=== PATIENT | female | born 1945 | race African-American/Black ===

== ENCOUNTER 2017-09-05 18:01 | Inpatient (IN) | payer MEDICARE ==
[~2017-09-05] VITALS: Ht 165.1 cm; Wt 76.7 kg
[2017-09-05 19:37] VITALS: BP 150/61
[2017-09-06 00:13] VITALS: BP 138/63
[2017-09-06] MEDS ORDERED: ATORVASTATIN CA40 MG ORAL (02:37)
[2017-09-06] MEDS ORDERED: NORVASC5 MG ORAL (02:37)
[2017-09-06] MEDS ORDERED: ASCORBIC ACID500 MG ORAL (02:37)
[2017-09-06] MEDS ORDERED: ASPIRIN EC325 MG ORAL (02:37)
[2017-09-06] MEDS ORDERED: DULCOLAX10 MG RC (02:48)
[2017-09-06] MEDS ORDERED: BENAZEPRIL HCL40 MG ORAL (02:48)
[2017-09-06] MEDS ORDERED: LEXAPRO20 MG ORAL (02:48)
[2017-09-06] MEDS ORDERED: LEVEMIR FL100 UNIT/1 SUBQ (02:48)
[2017-09-06] MEDS ORDERED: FLEET ENEMA133 M1 RC (02:48)
[2017-09-06] MEDS ORDERED: NORCO 5-325 TA1 EACH ORAL (02:48)
[2017-09-06] MEDS ORDERED: PLAVIX75 MG ORAL (02:48)
[2017-09-06] MEDS ORDERED: FOLIC ACID1 MG ORAL (02:48)
[2017-09-06] MEDS ORDERED: MOM30 ML ORAL (02:48)
[2017-09-06] MEDS ORDERED: MULTIVITAMINS1 EAC8 ORAL (02:48)
[2017-09-06] MEDS ORDERED: DEPAKOTE500 MG PO (02:48)
[2017-09-06] MEDS ORDERED: FERROUSUL325 M1 PO (02:48)
[2017-09-06] MEDS ORDERED: COLACE100 MG ORAL (02:48)
[2017-09-06] MEDS ORDERED: Milk of Magnesia 30ml Ud ORAL SCH (03:00)
[2017-09-06] MEDS ORDERED: Fleet's Enema 133ml RECTAL SCH (03:00)
[2017-09-06] MEDS ORDERED: Norco 5mg/325mg tab ORAL PRN (03:00)
[2017-09-06 04:00] VITALS: BP 138/68
[2017-09-06] MEDS ORDERED: Vancomycin 1250mg/D5W 250ml 250 ML IVPB SCH (06:15)
[2017-09-06] MEDS: NovoLOG Insulin Flexpen SUBQ SCH ×4 (06:30→20:24)
[2017-09-06 07:43] LABS: BASOPHILS % (AUTO) 0.4 % (0.0-2.0); EOSINOPHILS % (AUTO) 2.6 % (0.0-3.0); HEMATOCRIT 38.2 % (37.0-47.0); HEMOGLOBIN 12.9 G/DL (12.0-16.0); MEAN CORPUSCULAR VOLUME 90 FL (80-99); MONOCYTES % (AUTO) 5.7 % (1.0-10.0); NEUTROPHILS % (AUTO) 68.2 % (45.0-75.0); PLATELET COUNT 231 K/UL (150-450); RED BLOOD COUNT 4.23 M/UL (4.20-5.40); RED CELL DISTRIBUTION WIDTH 12.3 % (11.6-14.8)
[2017-09-06 08:00] VITALS: BP 135/67
[2017-09-06 08:16] LABS: ALANINE AMINOTRANSFERASE 21 U/L (12-78); ALBUMIN 2.5 G/DL (3.4-5.0); ALBUMIN/GLOBULIN RATIO 0.5 (1.0-2.7); ALKALINE PHOSPHATASE 69 U/L (46-116); ANION GAP 7 mmol/L (5-15); ASPARTATE AMINO TRANSFERASE 26 U/L (15-37); BILIRUBIN,TOTAL 0.3 MG/DL (0.2-1.0); BLOOD UREA NITROGEN 25 mg/dL (7-18); CALCIUM 8.9 MG/DL (8.5-10.1); CARBON DIOXIDE 27 MMOL/L (21-32); CHLORIDE 107 MMOL/L (98-107); CREATININE 0.9 MG/DL (0.55-1.30); POTASSIUM 4.1 MMOL/L (3.5-5.1); SODIUM 141 MMOL/L (136-145)
[2017-09-06] MEDS: Depakote 500mg tab ORAL SCH ×2 (08:42→18:05)
[2017-09-06] MEDS: Docusate 100mg cap ORAL SCH ×2 (08:42→18:05)
[2017-09-06] MEDS: Aspirin EC 325mg tab ORAL SCH (08:42)
[2017-09-06] MEDS: Multivitamin w/Minerals tab ORAL SCH (08:42)
[2017-09-06] MEDS: Ascorbic Acid 500mg tab ORAL SCH (08:44)
--- NOTE | 2017-09-06 09:00 | History and Physical Report ---
DATE OF ADMISSION: 09/05/2017 HISTORY OF PRESENT ILLNESS: This is a 72-year-old female, who came to the hospital where she has abscess on the back and has been given p.o. antibiotics for 7 days. The patient is still having draining abscess and was having a little fever at [facility]. She has no fever. No chills. PAST MEDICAL HISTORY: Significant for hypertension, dementia, depression. ALLERGIES: NKA. MEDICATIONS: See the list. PHYSICAL EXAMINATION: GENERAL: This is an elderly female, who is currently awake, slightly confused, comfortable, in no distress. VITAL SIGNS: Blood pressure is 130/70, pulse 60s, respirations 18-24. Temperature, no fever. HEENT: AT/NC. EOMI. PERRLA. NECK: Supple. No JVD. CHEST: Bilateral crackles. CARDIOVASCULAR: Regular rhythm. No gallop. No murmur. ABDOMEN: Soft. EXTREMITIES: No CCE. BACK: She has a (neck) abscess. GENITOURINARY: She has draining bladder as well as . ASSESSMENT: 1. Back abscess. 2. Hypertension. 3. Depression. 4. Osteoarthritis. PLAN: We will admit on medical floor. Start IV antibiotics and wound care. Consider surgical consult. Check laboratories, CBC, CMP, and blood cultures. Chaz Galeas M.D. DR: Tara JOB#: [id number] CC:
[2017-09-06 12:00] VITALS: BP 140/68
--- NOTE | 2017-09-06 12:22 | Consultation ---
History of Present Illness General Date patient seen: Sep 06, 2017 Present Illness HPI 72-year-old female with hx of depression and anxiety, who came to the hospital where she has abscess on the back and has been given p.o. antibiotics for 7 days. the pt was slightly confused and anxious. the pt perseverated that she was worried about her medical condition. she was on psych med before coming to the hospital. no si/hi/psychotic sxs Allergies: Coded Allergies: No Known Allergies (Unverified , 09/05/17) Medication History Scheduled Amlodipine Besylate (Norvasc), 5 MG ORAL BID, (Reported) Ascorbic Acid* (Ascorbic Acid*), 500 MG ORAL DAILY, (Reported) Aspirin* (Aspirin Ec*), 325 MG ORAL DAILY, (Reported) Atorvastatin Calcium* (Atorvastatin Calcium*), 40 MG ORAL BEDTIME, (Reported) Benazepril Hcl* (Benazepril Hcl*), 40 MG ORAL DAILY, (Reported) Bisacodyl (Dulcolax), 10 MG RC NEEDED, (Reported) Clopidogrel Bisulfate* (Plavix*), 75 MG ORAL DAILY, (Reported) Divalproex Sodium (Depakote), 500 MG PO BID, (Reported) Docusate Sodium* (Colace*), 100 MG ORAL TWICE A DAY, (Reported) Escitalopram Oxalate* (Lexapro*), 20 MG ORAL DAILY, (Reported) Ferrous Sulfate (Ferrousul), 325 MG PO DAILY, (Reported) Folic Acid* (Folic Acid*), 1 MG ORAL DAILY, (Reported) Insulin Detemir (Levemir Flexpen), 0 SUBQ BEDTIME, (Reported) Magnesium Hydroxide (Milk of Magnesia), 30 ML ORAL NEEDED, (Reported) Multivitamin With Minerals (Multivitamins With Minerals*), 1 TAB ORAL DAILY, ( Reported) Na Phos,M-B/Na Phos,Di-Ba (Fleet Enema), 133 ML RC NEEDED, (Reported) Scheduled PRN Hydrocodone Bit/Acetaminophen 5-325* ([place] 5-325*), 1 TAB ORAL Q6H PRN for For Pain, (Reported) Patient History Limited by: medical condition History Provided By: Patient, Significant Other, PMD Healthcare decision maker Resuscitation status Full Code Advanced Directive on File Past Medical/Surgical History Past Medical/Surgical History: (1) MDD (major depressive disorder) (2) Abscess Review of Systems Psychiatric: Reports: prior hx, anxiety, depressed feelings, emotional problems Physical Exam General Appearance: alert, mild distress Neurologic: oriented x 3, depressed affect Last 24 Hour Vital Signs Date Time Temp Pulse Resp B/P (MAP) Pulse Ox O2 Delivery O2 Flow Rate FiO2 09/06/17 12:00 97.3 53 20 140/68 (92) 100 97.3 09/06/17 08:43 137/67 09/06/17 08:43 53 137/67 09/06/17 08:00 97.3 53 19 135/67 (89) 100 97.3 09/06/17 07:01 Room Air 09/06/17 04:00 97.4 52 19 138/68 (91) 95 97.4 09/06/17 00:13 96.3 59 20 138/63 (88) 100 96.3 09/05/17 22:21 Room Air 09/05/17 21:00 Room Air 09/05/17 19:37 96.8 50 20 150/61 (90) 99 96.8 Intake and Output 09/05/17 09/06/17 19:00 07:00 # Voids 1 Laboratory Tests Test 09/06/17 07:00 White Blood Count 8.0 K/UL (4.8-10.8) Red Blood Count 4.23 M/UL (4.20-5.40) Hemoglobin 12.9 G/DL (12.0-16.0) Hematocrit 38.2 % (37.0-47.0) Mean Corpuscular Volume 90 FL (80-99) Mean Corpuscular Hemoglobin 30.5 PG (27.0-31.0) Mean Corpuscular Hemoglobin Concent 33.8 G/DL (32.0-36.0) Red Cell Distribution Width 12.3 % (11.6-14.8) Platelet Count 231 K/UL (150-450) Mean Platelet Volume 7.1 FL (6.5-10.1) Neutrophils (%) (Auto) 68.2 % (45.0-75.0) Lymphocytes (%) (Auto) 23.0 % (20.0-45.0) Monocytes (%) (Auto) 5.7 % (1.0-10.0) Eosinophils (%) (Auto) 2.6 % (0.0-3.0) Basophils (%) (Auto) 0.4 % (0.0-2.0) Sodium Level 141 MMOL/L (136-145) Potassium Level 4.1 MMOL/L (3.5-5.1) Chloride Level 107 MMOL/L (98-107) Carbon Dioxide Level 27 MMOL/L (21-32) Anion Gap 7 mmol/L (5-15) Blood Urea Nitrogen 25 mg/dL (7-18) H Creatinine 0.9 MG/DL (0.55-1.30) Estimat Glomerular Filtration Rate mL/min (>60) Glucose Level 75 MG/DL (74-106) Calcium Level 8.9 MG/DL (8.5-10.1) Total Bilirubin 0.3 MG/DL (0.2-1.0) Aspartate Amino Transf (AST/SGOT) 26 U/L (15-37) Alanine Aminotransferase (ALT/SGPT) 21 U/L (12-78) Alkaline Phosphatase 69 U/L (46-116) Total Protein 7.3 G/DL (6.4-8.2) Albumin 2.5 G/DL (3.4-5.0) L Globulin 4.8 g/dL Albumin/Globulin Ratio 0.5 (1.0-2.7) L Microbiology Date/Time Source Procedure Growth Status 09/05/17 23:30 Rectum Received Height (Feet): 5 Height (Inches): 5.00 Weight (Pounds): 167 Medications Current Medications Medications (Trade) Dose Ordered Sig/Tyson Route PRN Reason Start Time Stop Time Status Last Admin Dose Admin Acetaminophen (Tylenol) 650 mg Q6H PRN ORAL Mild Pain/Temp > 100.5 09/06/17 03:00 10/06/17 02:59 Acetaminophen/ Hydrocodone Bitart ([place] 5/325) 1 tab Q6H PRN ORAL For Pain 09/06/17 03:00 09/13/17 02:59 Amlodipine Besylate (Norvasc) 5 mg BID ORAL 09/06/17 09:00 10/06/17 08:59 09/06/17 08:43 Ascorbic Acid (Vitamin C) 500 mg DAILY ORAL 09/06/17 09:00 10/06/17 08:59 09/06/17 08:44 Aspirin (Ecotrin) 325 mg DAILY ORAL 09/06/17 09:00 10/06/17 08:59 09/06/17 08:42 Atorvastatin Calcium (Lipitor) 40 mg BEDTIME ORAL 09/06/17 21:00 10/06/17 20:59 Benazepril HCl (Lotensin) 40 mg DAILY ORAL 09/06/17 09:00 10/06/17 08:59 09/06/17 08:43 Bisacodyl (Dulcolax) 10 mg NEEDED RECTAL 09/06/17 03:00 10/06/17 02:59 Clindamycin HCl/ Dextrose 50 ml @ 100 mls/hr Q6H IV 09/06/17 09:00 09/13/17 08:59 09/06/17 08:46 Clopidogrel Bisulfate (Plavix) 75 mg DAILY ORAL 09/06/17 09:00 10/06/17 08:59 09/06/17 08:42 Dextrose (Dextrose 50%) 25 ml STAT PRN IV Hypoglycemia 09/06/17 03:00 10/06/17 02:59 Dextrose (Dextrose 50%) 50 ml STAT PRN IV Hypoglycemia 09/06/17 03:00 10/06/17 02:59 Divalproex Sodium (Depakote) 500 mg BID ORAL 09/06/17 09:00 10/06/17 08:59 09/06/17 08:42 Docusate Sodium (Colace) 100 mg TWICE A DAY ORAL 09/06/17 09:00 10/06/17 08:59 09/06/17 08:42 Escitalopram Oxalate (Lexapro) 20 mg DAILY ORAL 09/06/17 09:00 10/06/17 08:59 09/06/17 08:42 Ferrous Sulfate (Feosol) 325 mg DAILY ORAL 09/06/17 09:00 10/06/17 08:59 09/06/17 08:43 Folic Acid (Folate) 1 mg DAILY ORAL 09/06/17 09:00 10/06/17 08:59 09/06/17 08:43 Insulin Aspart (NovoLOG) BEFORE MEALS AND HS SUBQ 09/06/17 06:30 10/06/17 06:29 Insulin Detemir (Levemir) 10 units BEDTIME SUBQ 09/06/17 21:00 10/06/17 20:59 Magnesium Hydroxide (Mom) 30 ml NEEDED ORAL 09/06/17 03:00 10/06/17 02:59 Multivitamins Therapeutic (Therapeutic Multivitamin) 1 ea DAILY ORAL 09/06/17 09:00 10/06/17 08:59 09/06/17 08:42 Sodium Phosphate (Fleet's Sodium Phosl Enema) 133 ml NEEDED RECTAL 09/06/17 03:00 10/06/17 02:59 Vancomycin HCl (Vanco rx to dose) 1 ea DAILY PRN MISC Per rx protocol 09/06/17 03:00 10/06/17 02:59 Vancomycin HCl/ Dextrose 250 ml @ 166.667 mls/hr Q24H IVPB 09/07/17 08:00 09/12/17 07:59 Assessment/Plan Assessment/Plan MDD Anxiety -restart lexapro -ativan prn -d/w Julia Cain MD Sep 06, 2017 12:22
[2017-09-06 16:00] VITALS: BP 151/62
[2017-09-06 19:41] VITALS: BP 152/67
--- NOTE | 2017-09-06 19:45 | Progress Note ---
DATE: 09/06/2017 SUBJECTIVE: The patient is a 72-year-old female, who is currently awake, comfortable. No distress. Complaining of some confusion as well as back pain. She has a drain. She has no fever. No chills. is supposed to see her today. OBJECTIVE: VITAL SIGNS: Blood pressure 130/70, pulse 60 and no fever. HEENT: NAD. CHEST: Bilateral clear. CARDIOVASCULAR: Regular rhythm. No gallop. No murmur. ABDOMEN: Soft. EXTREMITIES: CCE. NEUROLOGICAL: No focal deficit. ASSESSMENT AND PLAN: 1. abscess. 2. Abdominal pain. 3. Hypertension. 4. Diabetes. We will currently continue antibiotics. Continue wound care. Surgery consult. Chaz Galeas M.D. DR: JOSE MIGUEL JOB#: [id number] CC:
[2017-09-06] MEDS: Atorvastatin 80mg tab ORAL SCH (20:21)
[2017-09-06] MEDS: Levemir Flexpen SUBQ SCH (20:22)
[2017-09-07 00:27] VITALS: BP_SYST 119; BP_SYST 94; BP_DIAS 49; BP_DIAS 79
[2017-09-07 04:03] VITALS: BP 146/67
[2017-09-07] MEDS: NovoLOG Insulin Flexpen SUBQ SCH ×4 (06:02→20:30)
[2017-09-07 08:00] VITALS: BP 164/60
[2017-09-07] MEDS: Ascorbic Acid 500mg tab ORAL SCH (08:39)
[2017-09-07] MEDS: Depakote 500mg tab ORAL SCH ×2 (08:39→18:00)
[2017-09-07] MEDS: Multivitamin w/Minerals tab ORAL SCH (08:39)
[2017-09-07] MEDS: Aspirin EC 325mg tab ORAL SCH (08:39)
[2017-09-07] MEDS: Vancomycin 1250mg/D5W 250ml IVPB SCH (08:40)
[2017-09-07] MEDS: Docusate 100mg cap ORAL SCH ×2 (08:40→18:00)
--- NOTE | 2017-09-07 11:09 | Consultation ---
History of Present Illness General Date patient seen: Sep 07, 2017 Reason for Consultation: back abscess Present Illness HPI 72 year old female [facility] resident with multiple medical comorbidities was noted to have mid back abscess that was draining. was given trial of oral abx but continued to progress and failed outpatient medical management. was admitted for IV Abx and surgical eval. patient seen, chart reviewed, patient examined. states pain in back at area of abscess. unsure how long she has had it for. otherwise comfortable. Allergies: Coded Allergies: No Known Allergies (Unverified , 09/05/17) Medication History Scheduled Amlodipine Besylate (Norvasc), 5 MG ORAL BID, (Reported) Ascorbic Acid* (Ascorbic Acid*), 500 MG ORAL DAILY, (Reported) Aspirin* (Aspirin Ec*), 325 MG ORAL DAILY, (Reported) Atorvastatin Calcium* (Atorvastatin Calcium*), 40 MG ORAL BEDTIME, (Reported) Benazepril Hcl* (Benazepril Hcl*), 40 MG ORAL DAILY, (Reported) Bisacodyl (Dulcolax), 10 MG RC NEEDED, (Reported) Clopidogrel Bisulfate* (Plavix*), 75 MG ORAL DAILY, (Reported) Divalproex Sodium (Depakote), 500 MG PO BID, (Reported) Docusate Sodium* (Colace*), 100 MG ORAL TWICE A DAY, (Reported) Escitalopram Oxalate* (Lexapro*), 20 MG ORAL DAILY, (Reported) Ferrous Sulfate (Ferrousul), 325 MG PO DAILY, (Reported) Folic Acid* (Folic Acid*), 1 MG ORAL DAILY, (Reported) Insulin Detemir (Levemir Flexpen), 0 SUBQ BEDTIME, (Reported) Magnesium Hydroxide (Milk of Magnesia), 30 ML ORAL NEEDED, (Reported) Multivitamin With Minerals (Multivitamins With Minerals*), 1 TAB ORAL DAILY, ( Reported) Na Phos,M-B/Na Phos,Di-Ba (Fleet Enema), 133 ML RC NEEDED, (Reported) Scheduled PRN Hydrocodone Bit/Acetaminophen 5-325* ([place] 5-325*), 1 TAB ORAL Q6H PRN for For Pain, (Reported) Patient History Limited by: medical condition History Provided By: Patient, Medical Record, PMD Healthcare decision maker Resuscitation status Full Code Advanced Directive on File Past Medical/Surgical History Past Medical/Surgical History: (1) Abscess (2) MDD (major depressive disorder) Review of Systems All Other Systems: negative except mentioned in HPI Physical Exam General Appearance: no apparent distress Lines, tubes and drains: peripheral HEENT: mucous membranes moist, PERRL Neck: normal inspection Respiratory/Chest: normal breath sounds, no respiratory distress, no accessory muscle use Cardiovascular/Chest: normal rate, regular rhythm Abdomen: normal bowel sounds, non tender, soft, no organomegaly, no mass Extremities: normal inspection Skin Exam: warm/dry Neurologic: alert, oriented x 3 Last 24 Hour Vital Signs Date Time Temp Pulse Resp B/P (MAP) Pulse Ox O2 Delivery O2 Flow Rate FiO2 09/07/17 09:00 Room Air 09/07/17 08:39 164/60 09/07/17 08:39 52 164/60 09/07/17 08:00 97.7 52 18 164/60 (94) 99 97.7 09/07/17 04:03 96.8 55 19 146/67 (93) 99 96.8 09/07/17 00:27 97.3 64 20 94/49 (64) 99 97.3 09/06/17 21:12 Room Air 09/06/17 19:41 98.0 57 20 152/67 (95) 96 98.0 09/06/17 18:07 59 151/62 09/06/17 16:00 98.2 59 19 151/62 (91) 98 98.2 09/06/17 12:00 97.3 53 20 140/68 (92) 100 97.3 Intake and Output 09/06/17 09/07/17 19:00 07:00 Intake Total 1034 ml 100 ml Balance 1034 ml 100 ml Intake Oral 500 ml IV Total 534 ml 100 ml # Voids 2 2 # Bowel Movements 1 Height (Feet): 5 Height (Inches): 5.00 Weight (Pounds): 167 Medications Current Medications Medications (Trade) Dose Ordered Sig/Tyson Route PRN Reason Start Time Stop Time Status Last Admin Dose Admin Acetaminophen (Tylenol) 650 mg Q6H PRN ORAL Mild Pain/Temp > 100.5 09/06/17 03:00 10/06/17 02:59 Acetaminophen/ Hydrocodone Bitart ([place] 5/325) 1 tab Q6H PRN ORAL For Pain 09/06/17 03:00 09/13/17 02:59 Amlodipine Besylate (Norvasc) 5 mg BID ORAL 09/06/17 09:00 10/06/17 08:59 09/07/17 08:39 Ascorbic Acid (Vitamin C) 500 mg DAILY ORAL 09/06/17 09:00 10/06/17 08:59 09/07/17 08:39 Aspirin (Ecotrin) 325 mg DAILY ORAL 09/06/17 09:00 10/06/17 08:59 09/07/17 08:39 Atorvastatin Calcium (Lipitor) 40 mg BEDTIME ORAL 09/06/17 21:00 10/06/17 20:59 09/06/17 20:21 Benazepril HCl (Lotensin) 40 mg DAILY ORAL 09/06/17 09:00 10/06/17 08:59 09/07/17 08:39 Bisacodyl (Dulcolax) 10 mg NEEDED RECTAL 09/06/17 03:00 10/06/17 02:59 Clindamycin HCl/ Dextrose 50 ml @ 100 mls/hr Q6H IV 09/06/17 09:00 09/13/17 08:59 09/07/17 10:33 Clopidogrel Bisulfate (Plavix) 75 mg DAILY ORAL 09/06/17 09:00 10/06/17 08:59 09/07/17 08:39 Dextrose (Dextrose 50%) 25 ml STAT PRN IV Hypoglycemia 09/06/17 03:00 10/06/17 02:59 Dextrose (Dextrose 50%) 50 ml STAT PRN IV Hypoglycemia 09/06/17 03:00 10/06/17 02:59 Divalproex Sodium (Depakote) 500 mg BID ORAL 09/06/17 09:00 10/06/17 08:59 09/07/17 08:39 Docusate Sodium (Colace) 100 mg TWICE A DAY ORAL 09/06/17 09:00 10/06/17 08:59 09/07/17 08:40 Escitalopram Oxalate (Lexapro) 20 mg DAILY ORAL 09/06/17 09:00 10/06/17 08:59 09/07/17 08:39 Ferrous Sulfate (Feosol) 325 mg DAILY ORAL 09/06/17 09:00 8/29/18 08:59 09/07/17 08:39 Folic Acid (Folate) 1 mg DAILY ORAL 09/06/17 09:00 10/06/17 08:59 09/07/17 08:39 Insulin Aspart (NovoLOG) BEFORE MEALS AND HS SUBQ 09/06/17 06:30 10/06/17 06:29 09/06/17 20:24 Insulin Detemir (Levemir) 10 units BEDTIME SUBQ 09/06/17 21:00 10/06/17 20:59 09/06/17 20:22 Lorazepam (Ativan) 2 mg Q6H PRN ORAL anxiety 09/06/17 12:45 09/13/17 12:44 Magnesium Hydroxide (Mom) 30 ml NEEDED ORAL 09/06/17 03:00 10/06/17 02:59 Multivitamins Therapeutic (Therapeutic Multivitamin) 1 ea DAILY ORAL 09/06/17 09:00 10/06/17 08:59 09/07/17 08:39 Sodium Phosphate (Fleet's Sodium Phosl Enema) 133 ml NEEDED RECTAL 09/06/17 03:00 10/06/17 02:59 Vancomycin HCl (Vanco rx to dose) 1 ea DAILY PRN MISC Per rx protocol 09/06/17 03:00 10/06/17 02:59 Vancomycin HCl/ Dextrose 250 ml @ 166.667 mls/hr Q24H IVPB 09/07/17 08:00 09/12/17 07:59 09/07/17 08:40 Assessment/Plan Problem List: (1) Abscess or cellulitis of back SNOMED: 244682919 (2) Cutaneous abscess of back [any part, except buttock] Assessment & Plan: 72F mid upper back abscess 2cm x 3cm with spontaneous drainage. area of drainage few mm in size. was able to express contents at bedside and completely drain. given poor nutrition may take some time to heal. most of drainage was old blood and minimal purulent. will monitor while in hospital. given large opening and good spontaneous drainage no need for further incision at this time. cont Abx. dressing changes bid and prn thank you for this consultation ICD Codes: L02.212 - Cutaneous abscess of back [any part, except buttock] SNOMED: 01462649, [id number] Status: stable Danny Valencia Sep 07, 2017 11:09
[2017-09-07 12:00] VITALS: BP 142/66
--- NOTE | 2017-09-07 15:03 | General Progress Note ---
Assessment/Plan Status: stable Assessment/Plan MDD Anxiety -restart lexapro -ativan prn -d/w friend Subjective Date patient seen: Sep 07, 2017 Neurologic/Psychiatric: Reports: anxiety, depressed, emotional problems Allergies: Coded Allergies: No Known Allergies (Unverified , 09/05/17) Objective Last 24 Hour Vital Signs Date Time Temp Pulse Resp B/P (MAP) Pulse Ox O2 Delivery O2 Flow Rate FiO2 09/07/17 12:00 98.0 51 20 142/66 (91) 97 98.0 09/07/17 09:00 Room Air 09/07/17 08:39 164/60 09/07/17 08:39 52 164/60 09/07/17 08:00 97.7 52 18 164/60 (94) 99 97.7 09/07/17 04:03 96.8 55 19 146/67 (93) 99 96.8 09/07/17 00:27 97.3 64 20 94/49 (64) 99 97.3 09/06/17 21:12 Room Air 09/06/17 19:41 98.0 57 20 152/67 (95) 96 98.0 09/06/17 18:07 59 151/62 09/06/17 16:00 98.2 59 19 151/62 (91) 98 98.2 Intake and Output 09/06/17 09/07/17 19:00 07:00 Intake Total 1034 ml 100 ml Balance 1034 ml 100 ml Intake Oral 500 ml IV Total 534 ml 100 ml # Voids 2 2 # Bowel Movements 1 Height (Feet): 5 Height (Inches): 5.00 Weight (Pounds): 167 General Appearance: no apparent distress, alert Neurologic: depressed affect - the pt is agitated Julia Oshea MD Sep 07, 2017 15:03
[2017-09-07 16:00] VITALS: BP 137/64
[2017-09-07] MEDS: LORazepam 1mg tab ORAL PRN (16:06)
[2017-09-07 19:17] VITALS: BP 138/60
[2017-09-07] MEDS: Atorvastatin 80mg tab ORAL SCH (20:30)
[2017-09-07] MEDS: Levemir Flexpen SUBQ SCH (20:30)
[2017-09-08 00:10] VITALS: BP 144/62
--- NOTE | 2017-09-08 01:00 | Progress Note ---
DATE: 09/07/2017 OBJECTIVE: VITAL SIGNS: Blood pressure 138/60, pulse 49, respirations 16, and temperature 98.6. HEENT: NAD. CHEST: Bilaterally clear. CARDIOVASCULAR: Regular rhythm. No gallop. No murmur. ABDOMEN: Soft. EXTREMITIES: CCE. ASSESSMENT: 1. Back abscess. 2. Cellulitis. 3. Hypertension. 4. Depression. PLAN: Continue current treatment. Surgery is on case for local debridement. Continue wound care. The patient is going to continue antibiotics. She is on vancomycin and clindamycin. Continue wound care. Continue Plavix. Continue benazepril. Chaz Galeas M.D. DR: JENIFER JOB#: [id number] CC:
[2017-09-08 04:02] VITALS: BP 149/55
[2017-09-08] MEDS: NovoLOG Insulin Flexpen SUBQ SCH ×4 (06:03→20:55)
[2017-09-08 08:00] VITALS: BP 126/74
[2017-09-08] MEDS: Multivitamin w/Minerals tab ORAL SCH (08:57)
[2017-09-08] MEDS: Docusate 100mg cap ORAL SCH ×2 (08:58→17:44)
[2017-09-08] MEDS: Depakote 500mg tab ORAL SCH ×2 (08:58→17:44)
[2017-09-08] MEDS: Ascorbic Acid 500mg tab ORAL SCH (08:58)
[2017-09-08] MEDS: LORazepam 1mg tab ORAL PRN (08:58)
[2017-09-08] MEDS: Aspirin EC 325mg tab ORAL SCH (08:58)
[2017-09-08] MEDS: Vancomycin 1250mg/D5W 250ml IVPB SCH (08:59)
[2017-09-08 12:00] VITALS: BP 150/71
--- NOTE | 2017-09-08 14:25 | General Progress Note ---
Assessment/Plan Assessment/Plan MDD Anxiety encephalopathy -restart lexapro -ativan prn -risperdal 1mg qhs Subjective Date patient seen: Sep 08, 2017 Neurologic/Psychiatric: Reports: anxiety Allergies: Coded Allergies: No Known Allergies (Unverified , 09/05/17) Subjective the pt was more confused today and hallucinating Objective Last 24 Hour Vital Signs Date Time Temp Pulse Resp B/P (MAP) Pulse Ox O2 Delivery O2 Flow Rate FiO2 09/08/17 12:00 97.8 54 20 150/71 (97) 98 97.8 09/08/17 09:00 Room Air 09/08/17 08:58 126/74 09/08/17 08:58 74 126/74 09/08/17 08:00 97.4 74 20 126/74 (91) 98 97.4 09/08/17 04:02 97.2 58 18 149/55 (86) 98 97.2 09/08/17 00:10 96.6 49 16 144/62 (89) 100 96.6 09/07/17 20:12 Room Air 09/07/17 19:17 96.1 49 16 138/60 (86) 100 96.1 09/07/17 16:00 97.7 50 20 137/64 (88) 94 97.7 Intake and Output 09/07/17 09/08/17 19:00 07:00 Intake Total 743.334 ml 100 ml Balance 743.334 ml 100 ml Intake Oral 360 ml IV Total 383.334 ml 100 ml # Voids 3 5 # Bowel Movements 2 1 Laboratory Tests 09/08/17 06:50: Vancomycin Level Trough 11.2 Height (Feet): 5 Height (Inches): 5.00 Weight (Pounds): 169 General Appearance: no apparent distress, alert, confused, other - [facility]H Julia Oshea MD Sep 08, 2017 14:25
[2017-09-08 16:00] VITALS: BP 155/78
[2017-09-08 20:00] VITALS: BP 132/66
[2017-09-08] MEDS: Levemir Flexpen SUBQ SCH (20:56)
[2017-09-08] MEDS: Atorvastatin 80mg tab ORAL SCH (20:57)
[2017-09-08] MEDS: HydrALAZINE 25mg tab ORAL SCH (22:00)
--- NOTE | 2017-09-08 23:45 | Progress Note ---
DATE: 09/08/2017 SUBJECTIVE: This is an elderly female, currently in the bed, comfortable, in no distress. OBJECTIVE: VITAL SIGNS: Blood pressure is 130/70, pulse 74, and respirations 18. HEENT: NAD. CHEST: Bilaterally clear. CARDIOVASCULAR: Regular rhythm. ABDOMEN: Soft. EXTREMITIES: CCE. ASSESSMENT: 1. Back abscess. 2. Hypertension. 3. Congestive heart failure. PLAN: We will currently continue wound care. Continue antibiotic. Continue supportive treatment. Chaz Galeas M.D. DR: JENIFER JOB#: [id number] CC:
[2017-09-09] VITALS: BP 140/60
[2017-09-09 04:00] VITALS: BP 159/67
[2017-09-09] MEDS: NovoLOG Insulin Flexpen SUBQ SCH ×2 (06:30→12:10)
[2017-09-09] MEDS: HydrALAZINE 25mg tab ORAL SCH (07:05)
[2017-09-09 08:00] VITALS: BP 138/69
[2017-09-09] MEDS: Vancomycin 1250mg/D5W 250ml IVPB SCH (08:16)
[2017-09-09] MEDS: Depakote 500mg tab ORAL SCH (08:18)
[2017-09-09] MEDS: Aspirin EC 325mg tab ORAL SCH (08:18)
[2017-09-09] MEDS: Multivitamin w/Minerals tab ORAL SCH (08:18)
[2017-09-09] MEDS: Ascorbic Acid 500mg tab ORAL SCH (08:19)
[2017-09-09] MEDS: Docusate 100mg cap ORAL SCH (08:19)
--- NOTE | 2017-09-09 10:57 | General Surgery Progress Note ---
General Surgery-Progress Note Subjective Additional Comments no acute events. improved. comfortable. no n/v/f/c. wound improved. Objective Last 24 Hour Vital Signs Date Time Temp Pulse Resp B/P (MAP) Pulse Ox O2 Delivery O2 Flow Rate FiO2 09/09/17 09:00 Room Air 09/09/17 08:22 138/69 09/09/17 08:22 57 138/69 09/09/17 08:00 97.9 57 20 138/69 (92) 99 97.9 09/09/17 07:05 142/63 09/09/17 04:00 97.0 60 20 159/67 (97) 100 97.0 09/09/17 00:00 97.9 52 20 140/60 (86) 100 97.9 09/08/17 22:00 108/56 09/08/17 21:00 Room Air 09/08/17 20:00 97.0 56 20 132/66 (88) 99 97.0 09/08/17 17:44 66 131/60 09/08/17 16:00 98.1 64 20 155/78 (103) 98 98.1 09/08/17 12:00 97.8 54 20 150/71 (97) 98 97.8 I&O Intake and Output 09/08/17 09/09/17 19:00 07:00 Intake Total 650.000 ml 340 ml Output Total 600 ml 900 ml Balance 50.000 ml -560 ml Intake Oral 300 ml 240 ml IV Total 350.000 ml 100 ml Output Urine Total 600 ml 900 ml Wound: clean, dry Drains: none Cardiovascular: RSR Respiratory: clear Abdomen: soft, flat Extremities: no cyanosis Plan Problems: (1) Abscess or cellulitis of back (2) Cutaneous abscess of back [any part, except buttock] Assessment & Plan: 72F mid upper back abscess 2cm x 3cm with spontaneous drainage. area of drainage few mm in size. was able to express contents at bedside and completely drain. given poor nutrition may take some time to heal. most of drainage was old blood and minimal purulent. will monitor while in hospital. given large opening and good spontaneous drainage no need for further incision at this time. cont Abx. consider transition to oral for d/c . dressing changes prn thank you for this consultation Danny Valencia Sep 09, 2017 10:57
[2017-09-09] MEDS ORDERED: BACTRIM DOUBLE S1 E1 ORAL (11:00)
[2017-09-09 12:00] VITALS: BP 133/60
[2017-09-09] MEDS ORDERED: Tubing IV Secondary IV ONE (13:14)
[2017-09-09] MEDS ORDERED: NS 275ml ONE (13:14)
--- NOTE | 2017-09-09 22:09 | General Progress Note ---
Assessment/Plan Assessment/Plan MDD Anxiety encephalopathy -restart lexapro -ativan prn -risperdal 1mg qhs Subjective Date patient seen: Sep 09, 2017 Neurologic/Psychiatric: Reports: anxiety, depressed, emotional problems Allergies: Coded Allergies: No Known Allergies (Unverified , 09/05/17) Subjective the pt was more confused today and hallucinating Objective Last 24 Hour Vital Signs Date Time Temp Pulse Resp B/P (MAP) Pulse Ox O2 Delivery O2 Flow Rate FiO2 09/09/17 12:00 97.9 53 22 133/60 (84) 98 97.9 09/09/17 09:00 Room Air 09/09/17 08:22 138/69 09/09/17 08:22 57 138/69 09/09/17 08:00 97.9 20 138/69 (92) 99 97.9 09/09/17 07:05 142/63 09/09/17 04:00 97.0 60 20 159/67 (97) 100 97.0 09/09/17 00:00 97.9 52 20 140/60 (86) 100 97.9 Intake and Output 09/08/17 09/09/17 19:00 07:00 Intake Total 650.000 ml 340 ml Output Total 600 ml 900 ml Balance 50.000 ml -560 ml Intake Oral 300 ml 240 ml IV Total 350.000 ml 100 ml Output Urine Total 600 ml 900 ml Height (Feet): 5 Height (Inches): 5.00 Weight (Pounds): 169 Julia Oshea MD Sep 09, 2017 22:09
--- NOTE | 2017-09-10 00:30 | Progress Note ---
DATE: 09/09/2017 SUBJECTIVE: This is a 72-year-old female, who came to the hospital for back abscess. The patient has refused IV antibiotic, wound care, and Surgery evaluation. The patient has finished IV antibiotic course ____. The patient has no fever. Cultures are negative. Discharge diagnoses: 1. Abscess on the back. 2. Hypertension. 3. Dementia. 4. Depression. PLAN: Continue home medications. Follow up as outpatient. DISCHARGE DIAGNOSES: 1. Cellulitis. 2. Abscess. 3. Depression. Chaz Galeas M.D. DR: Tara JOB#: [id number] CC:
--- NOTE | 2017-09-10 10:01 | Discharge Summary ---
Discharge Summary Discharge Summary _ DATE OF ADMISSION: 09/05/2017 DATE OF DISCHARGE: 09/09/2017 CONSULTANTS: Dr. Danny Oshea BRIEF HOSPITAL COURSE: Patient is a 72-year-old -[place] female, who came to the hospital hospital due to abscess on the back. She had been on po antibiotics for 7 days and the wound was draining with abscess. She was with slight fever at the group home. Due to failed outpatient management, she was taken as a direct admit to [facility]. She was admitted to medical floor. She was started on IV antibiotic vancomycin. Surgery was consulted. Patient has 2 cm x 3 cm abscess on the back with spontaneous drainage. No need for incision. Surgeon was able to express contents at bedside and completely drained. Drainage was mostly old blood with minimal purulence. Dressings were applied. He was given wound care. He was seen psychiatrist. Patient with history of depression and anxiety. He was restarted on Lexapro. He was placed on Ativan prn. He was confused and hallucinating, he was given Risperdal 1 mg daily at bedtime. Wound culture showed growth of Proteus. Wound improved. Patient was eventually cleared for discharge back to group home to continue Bactrim po. FINAL DIAGNOSES: Back abscess and cellulitis s/p drainage Hypertension Dementia Depression Anxiety disorder Encephalopathy DISPOSITION: Patient was transferred to [facility]. DISCHARGE MEDICATIONS: Refer to Discharge Medication List. I have been assigned to dictate discharge summary on this account, and I was not involved in the patient's management. Kristin Angeles NP Sep 10, 2017 10:01
== END 2017-09-09 13:15 | DRG 602 ==
LOC: 4W 19:05
PROC: 0H96XZZ Drainage of Back Skin, External Approach (ICD-10-PCS; principal; 2017-09-09)
DX: L02.212 Cutaneous abscess of back [any part, except buttock and flank] (principal); G93.40 Encephalopathy, unspecified; I10 Essential (primary) hypertension; F03.90 Unspecified dementia, unspecified severity, without behavioral disturbance, psychotic disturbance, mood disturbance, and anxiety; F32.9 Major depressive disorder, single episode, unspecified; M19.90 Unspecified osteoarthritis, unspecified site; F41.9 Anxiety disorder, unspecified; L03.312 Cellulitis of back [any part except buttock and flank]; Z79.82 Long term (current) use of aspirin
CPT/HCPCS: 36415; 80053; 80202; 82962; 85025; 87070; 87081; 87181; 87205; J1815; S0077; S5561